=== PATIENT | female | born 1985 | race African-American/Black ===

== ENCOUNTER 2017-08-21 18:31 | Emergency (ER) | payer SELFPAY ==
[~2017-08-21] VITALS: Ht 149.9 cm; Wt 40.8 kg
[~2017-08-21 18:31] MED LIST: CLARITIN10 M2 ORAL; IBUPROFEN400 MG ORAL; NEXAFED30 MG ORAL
[2017-08-21] MEDS ORDERED: NKM (18:38)
[2017-08-21 18:44] VITALS: BP 117/70
[2017-08-21] MEDS: Cyclobenzaprine 10mg Tab ORAL ONE ×2 (19:04→19:09)
[2017-08-21] MEDS ORDERED: IBUPROFEN600 MG ORAL (19:17)
[2017-08-21] MEDS ORDERED: CYCLOBENZAPRINE10 MG ORAL (19:17)
[2017-08-21 19:25] VITALS: BP 114/74
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
== END 2017-08-21 19:27 | disposition home or self-care (01) ==
LOC: EMR 18:45
DX: S16.1XXA Strain of muscle, fascia and tendon at neck level, initial encounter (principal); J45.909 Unspecified asthma, uncomplicated; V49.9XXA Car occupant (driver) (passenger) injured in unspecified traffic accident, initial encounter; Y92.410 Unspecified street and highway as the place of occurrence of the external cause
CPT/HCPCS: 99283

== ENCOUNTER 2018-01-20 23:34 | Emergency (ER) | payer MEDICAID ==
[~2018-01-20] VITALS: Ht 149.9 cm; Wt 40.8 kg
[~2018-01-20 23:34] MED LIST changes: +CYCLOBENZAPRINE10 MG ORAL; +IBUPROFEN600 MG ORAL; +NKM
[2018-01-20 23:52] VITALS: BP 110/75
[2018-01-20] MEDS ORDERED: IBUPROFEN600 MG ORAL (23:53)
--- NOTE | 2018-01-20 23:54 | Emergency Room Report ---
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 She works in a [employer] district. For the last week she's been cutting cloth using her right hand. Now she presents with right hand pain with numbness and tingling to her fingers. Most her pain is to the wrist area. Worse with movement. No fever chills but no nausea no vomiting. Pain is 8 out of 10. Better with rest. Worse with movement. Allergies: Coded Allergies: No Known Allergies (Unverified , 10/20/14) Patient History Past Medical History: see triage record, old chart reviewed Past Surgical History: none Pertinent Family History: none Social History: Denies: smoking Last Menstrual Period: last month Now: No Immunizations: other Reviewed Nursing Documentation: PMH: Agreed; PSxH: Agreed Nursing Documentation-PMH Hx Asthma: Yes Review of Systems Eye: Denies: eye pain, blurred vision ENT: Denies: ear pain, nose congestion, throat swelling Respiratory: Denies: cough, shortness of breath Cardiovascular: Denies: chest pain, palpitations Gastrointestinal: Denies: abdominal pain, diarrhea, nausea, vomiting Musculoskeletal: Reports: joint pain; Denies: back pain Skin: Denies: rash Neurological: Denies: headache, numbness Endocrine: Denies: increased thirst, increased urine Hematologic/Lymphatic: Denies: easy bruising All Other Systems: negative except mentioned in HPI Physical Exam Vital Signs Date Time Temp Pulse Resp B/P (MAP) Pulse Ox O2 Delivery O2 Flow Rate FiO2 01/20/18 23:37 98.1 78 16 110/75 100 Room Air 98.1 vitals normal Sp02 EP Interpretation: reviewed, normal General Appearance: well appearing, no apparent distress, alert Head: normocephalic, atraumatic Eyes: bilateral eye PERRL, bilateral eye EOMI ENT: hearing grossly normal, normal pharynx Neck: full range of motion, supple, no meningismus Respiratory: chest non-tender, lungs clear, normal breath sounds Cardiovascular #1: regular rate, rhythm, no murmur Gastrointestinal: normal bowel sounds, non tender, no mass, no organomegaly, no bruit, non-distended Musculoskeletal: back normal, gait/station normal, normal range of motion, tender - over the right median nerve. No deformity. Pulse normal Psychiatric: mood/affect normal Skin: warm/dry Procedures Splinting Splinting : Consent: Verbal Location: right wrist Pre-Made Type: velcro Splint: volar Pre-Proc Neuro Vasc Exam: normal Post-Proc Neuro Vasc Exam: normal Patient Tolerated: Well Complications: None Medical Decision Making Diagnostic Impression: Primary Impression: Carpal tunnel syndrome of right wrist ER Course Patient with pain over the right wrist consistent with carpal tunnel syndrome. No evidence of septic joint. No trauma. We'll discharge home. Last Vital Signs Date Time Temp Pulse Resp B/P (MAP) Pulse Ox O2 Delivery O2 Flow Rate FiO2 01/20/18 23:37 98.1 78 16 110/75 100 Room Air 98.1 Status: unchanged Disposition: HOME, SELF-CARE Condition: Stable Scripts Ibuprofen* (MOTRIN*) 600 Mg Tablet 600 MG ORAL THREE TIMES A DAY, #30 TAB 0 Refills Prov: RAFFAELE GARCIA M.D. 01/20/18 Additional Instructions: Elevate wrist. Ice pack to the area. Decreased motion. Follow-up your doctor in 7 days. Return if worse. RAFFAELE GARCIA M.D. Jan 20, 2018 23:53
[2018-01-21 00:09] VITALS: BP 110/75
== END 2018-01-21 00:09 | disposition home or self-care (01) ==
LOC: EMR 23:54
DX: G56.01 Carpal tunnel syndrome, right upper limb (principal); J45.909 Unspecified asthma, uncomplicated
CPT/HCPCS: 99282

== ENCOUNTER 2018-01-21 23:43 | Emergency (ER) | payer MEDICAID ==
[~2018-01-21] VITALS: Ht 149.9 cm; Wt 40.8 kg
[2018-01-21 23:46] VITALS: BP 114/84
[2018-01-22 00:23] VITALS: BP 114/84
[2018-01-22 00:51] LABS: APPEARANCE,URINE CLEAR; BILIRUBIN, URINE NEGATIVE (NEGATIVE); COLOR,URINE PALE YELLOW; GLUCOSE, URINE (UA) NEGATIVE (NEGATIVE); KETONES,URINE NEGATIVE (NEGATIVE); LEUKOCYTE ESTERASE ,URINE NEGATIVE (NEGATIVE); NITRITE,URINE NEGATIVE (NEGATIVE); PH,URINE 6 (4.5-8.0); PROTEIN,URINE NEGATIVE (NEGATIVE); UROBILINOGEN,URINE NORMAL MG/DL (0.0-1.0)
--- NOTE | 2018-01-22 01:09 | Emergency Room Report ---
History of Present Illness General Chief Complaint: Pain Source: Patient Present Illness HPI Patient present with complaints of left wrist pain She was here recently with complaints of right wrist pain With repetitive motion and cutting Pain is worse with extension of the wrist Denies any other fall or trauma Patient also reported that she had some discomfort and a cramping sensation in the vaginal area about 20 minutes ago Which has resolved Patient has had that previously Denies any discharge denies any foul smell Allergies: Coded Allergies: No Known Allergies (Unverified , 10/20/14) Patient History Past Medical History: see triage record Pertinent Family History: none Last Menstrual Period: "a week and a half ago" Now: No Reviewed Nursing Documentation: PMH: Agreed; PSxH: Agreed Nursing Documentation-PMH Hx Asthma: Yes Review of Systems All Other Systems: negative except mentioned in HPI Physical Exam Vital Signs Date Time Temp Pulse Resp B/P (MAP) Pulse Ox O2 Delivery O2 Flow Rate FiO2 01/21/18 23:46 98.1 81 18 114/84 99 Room Air 98.1 Sp02 EP Interpretation: reviewed, normal General Appearance: well appearing, no apparent distress Head: normocephalic, atraumatic Eyes: bilateral eye PERRL, bilateral eye EOMI ENT: normal pharynx Neck: full range of motion, supple Respiratory: lungs clear Cardiovascular #1: regular rate, rhythm Gastrointestinal: non tender, soft, no mass Musculoskeletal: other - Patient has a splint in place on the right hand, the left wrist had some minimal discomfort on the ulnar aspect, no obvious swelling or edema Neurologic: alert, oriented x3, responsive Skin: normal color, no rash Lymphatic: no adenopathy Medical Decision Making Diagnostic Impression: Primary Impression: wrist pain ER Course Patient had the splint remained in the right hand At this time given the evaluation and did not feel patient required another splint on the left hand patient's vaginal exam is deferred to Gynecology clinic Does not sound to be uncomfortable at this time Patient's urine sample was clean and stable for close outpatient follow-up Labs Test 01/22/18 00:00 Urine Color Pale yellow Urine Appearance Clear Urine pH 6 (4.5-8.0) Urine Specific [place] 1.015 (1.005-1.035) Urine Protein Negative (NEGATIVE) Urine Glucose (UA) Negative (NEGATIVE) Urine Ketones Negative (NEGATIVE) Urine Occult Blood Negative (NEGATIVE) Urine Nitrite Negative (NEGATIVE) Urine Bilirubin Negative (NEGATIVE) Urine Urobilinogen Normal MG/DL (0.0-1.0) Urine Leukocyte Esterase Negative (NEGATIVE) Urine HCG, Qualitative Negative (NEGATIVE) Last Vital Signs Date Time Temp Pulse Resp B/P (MAP) Pulse Ox O2 Delivery O2 Flow Rate FiO2 01/22/18 00:23 98.1 18 114/84 99 Room Air 98.1 01/21/18 23:46 81 Status: unchanged Disposition: HOME, SELF-CARE Condition: Stable Referrals: [facility],REFERRING (PCP) Patient Instructions: Wrist Splint, [id number], Wrist Pain, [id number] Additional Instructions: Patient is provided with the discharge instructions notified to follow up with primary doctor in the next 2-3 days otherwise return to the er with any worsening symptoms. Please note that this report is being documented using [employer] technology. This can lead to erroneous entry secondary to incorrect interpretation by the dictating instrument. Marcial Butt DO Jan 22, 2018 01:09
== END 2018-01-22 01:05 | disposition home or self-care (01) ==
LOC: EMR 23:58
DX: M25.532 Pain in left wrist (principal); R10.2 Pelvic and perineal pain
CPT/HCPCS: 81003; 81025; 99282

== ENCOUNTER 2018-02-08 12:45 | Emergency (ER) | payer MEDICAID ==
[~2018-02-08] VITALS: Ht 149.9 cm; Wt 40.8 kg
[2018-02-08 13:06] VITALS: BP 103/75
[2018-02-08] MEDS ORDERED: OCUFLOX5 ML OP (13:08)
--- NOTE | 2018-02-08 13:09 | Emergency Room Report ---
History of Present Illness General Chief Complaint: Eye Problems Source: Patient Present Illness HPI 32 yo female patient presents ER complaining of eye irritation 1 day. Patient reports yellow crusting on right eye. Reports redness. Denies fever, patient. Reports vaccinations. Denies other acute symptoms. Denies contacts with similar symptoms. Reports does not wearing contact lenses. Denies pain with movement. Allergies: Coded Allergies: No Known Allergies (Unverified , 10/20/14) Patient History Past Medical History: see triage record Last Menstrual Period: January 11, 2018 Now: No Reviewed Nursing Documentation: PMH: Agreed; PSxH: Agreed Nursing Documentation-PMH Past Medical History: No History, Except For Hx Asthma: Yes Review of Systems All Other Systems: negative except mentioned in HPI Physical Exam Vital Signs Date Time Temp Pulse Resp B/P (MAP) Pulse Ox O2 Delivery O2 Flow Rate FiO2 02/08/18 12:51 98.0 86 18 103/75 100 Room Air 98.1 Sp02 EP Interpretation: reviewed, normal General Appearance: well appearing, no apparent distress, alert, GCS 15, non- toxic Head: normocephalic, atraumatic, other - no facial swelling Eyes: right eye Scleral Injection; bilateral eye normal inspection, bilateral eye PERRL, bilateral eye EOMI ENT: hearing grossly normal, normal pharynx, no angioedema, normal voice, TMs + canals normal, uvula midline, moist mucus membranes Neck: full range of motion Respiratory: lungs clear, normal breath sounds, no rhonchi, no respiratory distress, no accessory muscle use, no wheezing, speaking full sentences Cardiovascular #1: regular rate, rhythm, no edema Musculoskeletal: back normal, digits/nails normal, gait/station normal, normal range of motion, non-tender Neurologic: alert, oriented x3, responsive, motor strength/tone normal, sensory intact Psychiatric: mood/affect normal Skin: no rash Medical Decision Making PA Attestation Dr. Santos is my supervising Physician whom patient management has been discussed with. Diagnostic Impression: Primary Impression: Conjunctivitis ER Course Pt. presents to the ED c/o eye irritation right eye. Ddx considered but are not limited to allergic conjunctivitis, bacterial conjunctivitis, periorbital cellulitis, URI, sinusitis. Vital signs: are WNL, pt. is afebrile Patient has no signs of surrounding cellulitis, no pain with eye movement, does not require imaging at this time. ER COURSE: PE consistent with conjunctivitis right eye. We'll cover for possible bacterial cause. Compresses to eye. Follow up with ophthalmology an outside machinist apprentice. Do not touch eye. Wash hands thoroughly. DISCHARGE: Rx provided for Erythromycin ointment. Informed patient to apply to both eyes. At this time pt. is stable for d/c to home. Patient is resting comfortably, in no acute distress, nontoxic appearing, talking and smilng without difficulty. Will provide printed patient care instructions, and any necessary prescriptions. Patient instructed to follow up with management retail intern and discuss further follow up with ophthalmology and outside machinist apprentice. Care plan and follow up instructions have been discussed with the patient prior to discharge. Patient questions asked and answered. Patient reports undestanding and agreement to treatment plan. ER precautions given. Patient instructed to return to ER immediately for any new or worsening of symptoms including but not limited to vision loss, fever, changes in vision. - Please note that this Emergency Department Report was dictated using [employer] stick man technology software, occasionally this can lead to erroneous entry secondary to interpretation by the dictation equipment. Last Vital Signs Date Time Temp Pulse Resp B/P (MAP) Pulse Ox O2 Delivery O2 Flow Rate FiO2 02/08/18 12:51 98.0 86 18 103/75 100 Room Air 98.1 Disposition: HOME, SELF-CARE Condition: Stable Scripts Erythromycin Base (ERYTHROMYCIN*) 3.5 Gm Oint...g. 1 APPLIC RIGHT EYE TID for 7 Days, #3.5 GM 0 Refills Prov: Nigel Bran 02/08/18 Patient Instructions: Bacterial Conjunctivitis, [id number], Viral Conjunctivitis Additional Instructions: Followup with primary care provider in 3 -5 days. Followup with clerical support specialist in 2-3 days. Followup with outside machinist apprentice for eye examination. Take medications as directed. Do not apply directly to eye or will contaminate medication. Wash hands thoroughly. Avoid touching eye. Patient questions asked and answered. ER precautions given, patient instructed to return to ER immediately for any new or worsening of symptoms. Nigel Bran Feb 08, 2018 13:09
[2018-02-08] MEDS ORDERED: ERYTHROMYCIN3.5 GM RIGHT EYE (13:16)
[2018-02-08 13:28] VITALS: BP 103/75
== END 2018-02-08 13:31 | disposition home or self-care (01) ==
LOC: EMR 13:04
DX: H10.9 Unspecified conjunctivitis (principal); J45.909 Unspecified asthma, uncomplicated
CPT/HCPCS: 99283

== ENCOUNTER 2018-03-19 07:02 | Emergency (ER) | payer MEDICAID ==
[~2018-03-19] VITALS: Ht 149.9 cm; Wt 40.8 kg
[~2018-03-19 07:02] MED LIST changes: +ERYTHROMYCIN3.5 GM RIGHT EYE; +OCUFLOX5 ML OP
[2018-03-19] MEDS ORDERED: Albuterol/Ipratropium 3ml neb HHN ONE (08:15)
--- NOTE | 2018-03-19 08:22 | Diagnostic Imaging Report ---
INDICATION: Pain COMPARISON: Chest x-ray 10/20/14 FINDINGS: Single frontal view demonstrates a normal cardiomediastinal silhouette. The lungs are clear. No pleural effusions. The visualized osseous structures are within normal limits. IMPRESSION: No acute cardiopulmonary disease.
[2018-03-19] MEDS ORDERED: IBUPROFEN400 M1 PO (08:24)
[2018-03-19] MEDS ORDERED: ALBUTEROL SULF8.5 GM INH (08:24)
[2018-03-19 08:40] VITALS: BP 110/80
--- NOTE | 2018-03-21 14:49 | Cardiology Report ---
APPROVED REPORT EKG Measurement Heart [id number] Normal sinus rhythm Rightward axis Borderline ECG
--- NOTE | 2018-03-22 03:01 | Emergency Room Report ---
History of Present Illness General Chief Complaint: Pain Source: Patient Present Illness HPI Patient is a 32-year-old female who presented after increased chest discomfort. Patient had gradual onset of symptoms. She had prior history of asthma as a child. She denies any fever. She had nonproductive cough. She denies being smoker. She denies any significant cardiac history. Allergies: Coded Allergies: No Known Allergies (Unverified , 10/20/14) Patient History Past Medical History: see triage record Last Menstrual Period: last week Reviewed Nursing Documentation: PMH: Agreed; PSxH: Agreed Nursing Documentation-PMH Past Medical History: No History, Except For Hx Asthma: Yes Review of Systems All Other Systems: negative except mentioned in HPI Physical Exam Vital Signs Date Time Temp Pulse Resp B/P (MAP) Pulse Ox O2 Delivery O2 Flow Rate FiO2 03/19/18 07:09 98.2 80 18 108/76 98 98.2 03/19/18 08:08 Room Air General Appearance: well appearing, no apparent distress, alert, GCS 15 Head: normocephalic, atraumatic ENT: hearing grossly normal, normal voice Neck: full range of motion, supple Respiratory: lungs clear, normal breath sounds, no respiratory distress, speaking full sentences Cardiovascular #1: normal inspection Gastrointestinal: normal inspection, non tender, soft Musculoskeletal: normal inspection, back normal, digits/nails normal, no calf tenderness Neurologic: normal inspection, alert, oriented x3, responsive, porcelain enamel installer III-XII nml as tested, normal gait Psychiatric: mood/affect normal Skin: no rash Medical Decision Making Diagnostic Impression: Primary Impression: Nonspecific chest pain ER Course Patient presented for chest pain. Differential diagnosis included but was not limited to acute coronary syndrome, pulmonary embolism, pneumonia, aortic dissection, shingles, pneumothorax, aortic dissection, esophageal rupture, pericarditis. Because of complexity of patient's case imaging studies were ordered. EKG interpreted by me showed normal sinus rhythm without acute ST or T wave changes. Chest x-ray one view read by radiology showed normal cardiac size without evident infiltrate or effusion. The patient given a breathing treatment with improvement in her symptoms.The patient is advised to follow up with primary care doctor in 1-2 days. Patient is advised to return if any worsening condition or if any changes in status that are concerning. This report is dictated with [employer] Power system engineer software which may occasionally lead to discrepancies related to use of this software. Labs Test 03/19/18 07:10 Urine HCG, Qualitative Negative (NEGATIVE) Last Vital Signs Date Time Temp Pulse Resp B/P (MAP) Pulse Ox O2 Delivery O2 Flow Rate FiO2 03/19/18 08:40 98.0 89 18 110/80 100 Room Air 98.0 Status: improved Disposition: HOME, SELF-CARE Condition: Stable Scripts Albuterol Sulfate* (ALBUTEROL SULFATE MDI*) 8.5 Gm Hfa.aer.ad 2 PUFF INH Q4H PRN for cough/wheezing, #1 EA 0 Refills Prov: Neftaly Franco MD 03/19/18 Ibuprofen (Ibuprofen) 400 Mg Tablet 400 MG PO Q8HR, #30 TAB Prov: Neftaly Franco MD 03/19/18 Patient Instructions: Nonspecific Chest Pain, [id number]-vn-[place]rou Neftaly Franco MD Mar 22, 2018 03:00
== END 2018-03-19 08:40 | disposition home or self-care (01) ==
LOC: EMR 07:50
DX: R07.9 Chest pain, unspecified (principal)
CPT/HCPCS: 71045; 81025; 93005; 94640; 94664; 99283; J7620

== ENCOUNTER 2018-07-29 18:13 | Emergency (ER) | payer MEDICAID ==
[~2018-07-29] VITALS: Ht 149.9 cm; Wt 40.8 kg
[~2018-07-29 18:13] MED LIST changes: +ALBUTEROL SULF8.5 GM INH; +IBUPROFEN400 M1 PO
[2018-07-29] MEDS ORDERED: EPINEPHrine 1mg/1ml Amp IM ONE (18:45)
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
[2018-07-29 18:56] VITALS: BP 109/72
--- NOTE | 2018-07-29 18:56 | NUR ---
ED Nurse Note: pt walked into ED c/o swollen tongue, pt states she ate some chicken and felt throat closing up, denies n/v/d, denies hives. PT AA&ox4, gcs=15, skin warm and dry, resp even and unlabored, airway intact, pt can speak complete sentences wo difficulty, -n/v/d, ambulates w/ steady gait, will cont monitor, nsr on skills trainer, vss, O2sat = 100% on RA.
--- NOTE | 2018-07-29 18:56 | NUR ---
ED Nurse Note: last period was 2 wks ago, denies .
[2018-07-29 19:20] LABS: APPEARANCE,URINE CLEAR; BILIRUBIN, URINE NEGATIVE (NEGATIVE); COLOR,URINE PALE YELLOW; GLUCOSE, URINE (UA) NEGATIVE (NEGATIVE); KETONES,URINE NEGATIVE (NEGATIVE); LEUKOCYTE ESTERASE ,URINE NEGATIVE (NEGATIVE); NITRITE,URINE NEGATIVE (NEGATIVE); PH,URINE 6 (4.5-8.0); PROTEIN,URINE NEGATIVE (NEGATIVE); UROBILINOGEN,URINE NORMAL MG/DL (0.0-1.0)
[2018-07-29] MEDS ORDERED: BENADRYL25 MG ORAL (20:23)
[2018-07-29] MEDS ORDERED: PREDNISONE20 MG ORAL (20:23)
[2018-07-29 20:30] VITALS: BP_SYST 106; BP_SYST 109; BP_DIAS 68; BP_DIAS 72
--- NOTE | 2018-07-29 20:32 | NUR ---
ED Nurse Note: pt was cleared for discharge by kayla, tee instruction and prescription explained and pt able to verbalize understanding. id band removed. vss, aox4. pt walked with steady gait. pt walk out of the with all belongings.
== END 2018-07-29 20:32 | disposition home or self-care (01) ==
LOC: EMR 19:38
DX: T78.3XXA Angioneurotic edema, initial encounter (principal); J45.909 Unspecified asthma, uncomplicated
CPT/HCPCS: 81003; 81025; 96372; 99283; J0171; J7512

== ENCOUNTER 2018-09-07 12:47 | Emergency (ER) | payer MEDICAID ==
[~2018-09-07] VITALS: Ht 149.9 cm; Wt 40.8 kg
[~2018-09-07 12:47] MED LIST changes: +BENADRYL25 MG ORAL; +PREDNISONE20 MG ORAL
[2018-09-07] MEDS ORDERED: NKM (13:07)
[2018-09-07 13:10] VITALS: BP 128/67
--- NOTE | 2018-09-07 13:15 | NUR ---
ED Nurse Note: pt walked in c/o swollen tongue x 30min prior to walk in, ate peanut butter and apple today, pt denies other sx. pt AA&ox4, gcs=15, skin warm and dry, resp even and unlabored on RA, able to speak complete sentences w/o difficulty, -n/v/d, no hives or rash noted. will cont monitor.
[2018-09-07] MEDS ORDERED: EPINEPHrine 1mg/1ml Amp IM ONE (13:30)
[2018-09-07] MEDS: Dexamethasone 4mg/ml vial IM ONE ×2 (13:39→13:43)
--- NOTE | 2018-09-07 13:39 | NUR ---
ED Nurse Note: pt refused decadron, ER provider notified.
--- NOTE | 2018-09-07 14:19 | NUR ---
ED Nurse Note: pt reports tongue swelling is better, resp even and unlabored on RA, no sx resp distress will cont monitor.
--- NOTE | 2018-09-07 14:37 | Emergency Room Report ---
History of Present Illness General Chief Complaint: Allergic Reaction Source: Patient Present Illness HPI 33-year-old female presents to the emergency department complaining of swelling of her tongue primarily on the left side 45 minutes. Patient reports history of angioedema in the past which responded well to epinephrine given in the ER. Patient states that she had some peanut butter prior to onset of her symptoms and that this may have been a chair. Patient states that she never followed up and had allergy testing. She denies wheezing, swelling of the throat, difficulty breathing or swallowing or rashes. Denies sore throat, fevers or chills. She denies pain. Allergies: Coded Allergies: No Known Allergies (Unverified , 10/20/14) Patient History Past Medical History: see triage record Past Surgical History: none Pertinent Family History: none Now: No Immunizations: UTD Reviewed Nursing Documentation: PMH: Agreed; PSxH: Agreed Nursing Documentation-PMH Past Medical History: No History, Except For Hx Asthma: Yes Review of Systems All Other Systems: negative except mentioned in HPI Physical Exam Vital Signs Date Time Temp Pulse Resp B/P (MAP) Pulse Ox O2 Delivery O2 Flow Rate FiO2 09/07/18 13:04 98.4 90 19 111/78 99 Room Air Sp02 EP Interpretation: reviewed, normal General Appearance: no apparent distress, alert, GCS 15, non-toxic Head: normocephalic, atraumatic Eyes: bilateral eye normal inspection, bilateral eye PERRL ENT: hearing grossly normal, normal voice, other - Mild Swelling of the tongue left>right side. no stridor, normal posterior pharynx. able to tolerate secretions. Neck: full range of motion Respiratory: chest non-tender, lungs clear, normal breath sounds, no respiratory distress, no accessory muscle use, no wheezing, speaking full sentences Cardiovascular #1: regular rate, rhythm Musculoskeletal: back normal, gait/station normal, normal range of motion, non- tender Neurologic: alert, oriented x3, responsive, motor strength/tone normal, sensory intact, speech normal, grossly normal Psychiatric: judgement/insight normal Skin: normal color, no rash, warm/dry, well hydrated Lymphatic: no adenopathy Medical Decision Making PA Attestation Dr. Franco is my supervising Physician whom patient management has been discussed with. Diagnostic Impression: Primary Impression: Angio-edema Qualified Codes: T78.3XXA - Angioneurotic edema, initial encounter ER Course 33-year-old female presents to the emergency department complaining of swelling of her tongue primarily on the left side 45 minutes. Patient reports history of angioedema in the past which responded well to epinephrine given in the ER. Patient states that she had some peanut butter prior to onset of her symptoms and that this may have been a chair. Patient states that she never followed up and had allergy testing. She denies wheezing, swelling of the throat, difficulty breathing or swallowing or rashes. Denies sore throat, fevers or chills. She denies pain. Ddx considered but are not limited to cellulitis, allergic reaction, angio edema , abscess Vital signs: are WNL, pt. is afebrile H&PE are most consistent with acute angio-edema possibly allergy induced.-- oxygenating well, no signs of anaphylaxis, no stridor, no obvious airway compromise. ORDERS: none required at this time, the diagnosis is clinical ED INTERVENTIONS: IM Epi, Pt. declined Steroids. d/w pt. conservative treatment, and to follow up with a primary care provider. pt given a list of primary care clinics for follow up. d/w pt. to return to the ED with worsening or new symptoms. d/c with rx for EpiPens. DISCHARGE: At this time pt. is stable for d/c to home. Will provide printed patient care instructions, and any necessary prescriptions. Care plan and follow up instructions have been discussed with the patient prior to discharge. Last Vital Signs Date Time Temp Pulse Resp B/P (MAP) Pulse Ox O2 Delivery O2 Flow Rate FiO2 09/07/18 13:10 90 16 128/67 98 Room Air 09/07/18 13:04 98.4 Disposition: HOME, SELF-CARE Condition: Stable Scripts Epinephrine (Epipen 2-Matt) 0.3 Mg/0.3 Ml Auto.injct 0.3 MG IM PRN, #1 EA Prov: Vivien Thomas 09/07/18 Prednisone* (PREDNISONE*) 20 Mg Tablet 20 MG ORAL DAILY for 5 Days, #5 TAB 0 Refills Prov: Vivien Thomas 09/07/18 Patient Instructions: Angioedema, [id number] Additional Instructions: Take medications as directed. Follow up with a Primary Care Provider within 4 days, even if your symptoms have resolved. ALLERGY TESTING IS REQUIRED --Please review list of primary care clinics, if you do not already have a primary care provider Return sooner to ED if new symptoms occur, or current symptoms become worse. - Please note that this Emergency Department Report was dictated using [employer]uri[employer] equipment operator technology software, occasionally this can lead to erroneous entry secondary to interpretation by the dictation equipment. Vivien Thomas Sep 07, 2018 14:37
[2018-09-07] MEDS ORDERED: EPIPEN 2-P0.3 MG/0.3 IM (14:38)
[2018-09-07] MEDS ORDERED: PREDNISONE20 MG ORAL (14:38)
[2018-09-07 14:52] VITALS: BP 126/66
--- NOTE | 2018-09-07 14:53 | NUR ---
ED Nurse Note: pt cleared to be d/c per ER provider, pt discharge/aftercare instruction provided w/ prescription, pt education done via discussion and handout, pt advised to follow up with pcp or return to ed if sx worsen or new sx develop, pt verbalized understanding and agrees with plan. vss, resp even and unlabored on RA, -n/v/d, ambulates w/ steady gait, all belongings left w./ pt.
== END 2018-09-07 14:53 | disposition home or self-care (01) ==
LOC: EMR 13:19
DX: T78.3XXA Angioneurotic edema, initial encounter (principal); J45.909 Unspecified asthma, uncomplicated
CPT/HCPCS: 96372; 99283; J0171; J1100

== ENCOUNTER 2018-09-27 15:22 | Emergency (ER) | payer SELFPAY ==
[~2018-09-27] VITALS: Ht 149.9 cm; Wt 40.8 kg
[~2018-09-27 15:22] MED LIST changes: +EPIPEN 2-P0.3 MG/0.3 IM
--- NOTE | 2018-09-27 15:35 | NUR ---
ED Nurse Note: PT WALKED IN TO ER TODAY FROM HOME. AOX4. PT C/O ITCHING AND YELLOW DISCHARGE OF RIGHT EYE X 1-2 DAYS AGO. PT STATES SHE WOKE UP THIS AM WITH CRUSTY EYELID. PT DENIES ANY PAIN OR CHANGES IN VISION. PT PRESENTS WITH REDNESS BUT NO ACTIVE DRAINAGE AT THIS TIME. VA OU: 20/20
[2018-09-27 15:37] VITALS: BP 116/74
--- NOTE | 2018-09-27 16:25 | Emergency Room Report ---
History of Present Illness General Chief Complaint: Eye Problems Source: Patient Present Illness HPI 33-year-old female presents to the emergency department complaining of eye discharge in the right eye with swelling and erythema 2-3 days. Patient reports significant amount of discharge in the mornings. Denies eye pain. Patient denies foreign body or scratching sensation she denies photophobia or pain with eye movements. Patient reports some increase in her lacrimation she denies appreciable trauma to the eye she denies contact lens use. she also c/o ear wax sensation which she rates as 8/10 in severity discomfort in the ears bilaterally. Denies ear d/c, ear tenderness or loss of hearing. pt. states hearing is mildly muffled. denies ear pain. Allergies: Coded Allergies: No Known Allergies (Unverified , 10/20/14) Patient History Past Medical History: see triage record Past Surgical History: none Pertinent Family History: none Last Menstrual Period: 3 weeks Now: No Reviewed Nursing Documentation: PMH: Agreed; PSxH: Agreed Nursing Documentation-PMH Past Medical History: No History, Except For Hx Asthma: Yes Review of Systems All Other Systems: negative except mentioned in HPI Physical Exam Vital Signs Date Time Temp Pulse Resp B/P (MAP) Pulse Ox O2 Delivery O2 Flow Rate FiO2 09/27/18 15:25 98.2 100 20 112/70 98 Room Air Sp02 EP Interpretation: reviewed, normal General Appearance: no apparent distress, alert, GCS 15, non-toxic Head: normocephalic, atraumatic Eyes: bilateral eye normal inspection, bilateral eye PERRL, bilateral eye other - right eye with purulent d/c, and conjunctival erythema and swelling, no photophobia or pain with eye movements, no evidence of eye fb. ENT: hearing grossly normal, normal voice, nasal congestion, other - Excessive cerumen primarily in the left ear, no evidence ot TM rupture or infection. Neck: full range of motion Respiratory: lungs clear, normal breath sounds, speaking full sentences Cardiovascular #1: regular rate, rhythm Musculoskeletal: back normal, gait/station normal, normal range of motion, non- tender Neurologic: alert, oriented x3, responsive, motor strength/tone normal, sensory intact, normal gait, speech normal, grossly normal Psychiatric: judgement/insight normal Skin: normal color, no rash, warm/dry, well hydrated Lymphatic: no adenopathy Medical Decision Making PA Attestation Dr. Santos is my supervising Physician whom patient management has been discussed with. Diagnostic Impression: Primary Impression: Bacterial conjunctivitis of right eye Additional Impressions: Excessive cerumen in left ear canal Nasal congestion ER Course 33-year-old female presents to the emergency department complaining of eye discharge in the right eye with swelling and erythema 2-3 days. Patient reports significant amount of discharge in the mornings. Denies eye pain. Patient denies foreign body or scratching sensation she denies photophobia or pain with eye movements. Patient reports some increase in her lacrimation she denies appreciable trauma to the eye she denies contact lens use. she also c/o ear wax sensation which she rates as 8/10 in severity discomfort in the ears bilaterally. Denies ear d/c, ear tenderness or loss of hearing. pt. states hearing is mildly muffled. denies ear pain. Ddx considered but are not limited to: corneal abrasion, acute glaucoma, globe rupture, FB, Corneal Ulcer, conjunctivitis. Iridis, orbital cellulitis,keratitis , sinusitis Vital signs: are WNL, pt. is afebrile H&PE are most consistent with: bacterial conjunctivitis, and excessive cerumen ORDERS: none at this time. ED INTERVENTIONS: none at this time. DISCHARGE: At this time pt. is stable for d/c to home. Will provide printed patient care instructions, and any necessary prescriptions. Care plan and follow up instructions have been discussed with the patient prior to discharge. Last Vital Signs Date Time Temp Pulse Resp B/P (MAP) Pulse Ox O2 Delivery O2 Flow Rate FiO2 09/27/18 15:37 98.4 92 18 116/74 99 Room Air Disposition: HOME, SELF-CARE Condition: Stable Scripts Cetirizine Hcl/Pseudoephedrine (ZYRTEC-D TABLET) 1 Each Tab.er.12h 1 EACH ORAL Q12HR, #20 TAB Prov: Vivien Thomas 09/27/18 Carbamide Peroxide (DEBROX) 15 Ml Drops 10 DROP LEFT EAR TWICE A DAY for 4 Days, #15 ML 0 Refills Prov: Vivien Thomas 09/27/18 Ofloxacin (OCUFLOX) 5 Ml Drops 1 ML OP TID for 5 Days, #5 ML Prov: Vivien Thomas 09/27/18 Referrals: NOT CHOSEN IPA/,REFERRING (PCP) Patient Instructions: Bacterial Conjunctivitis, [id number] Additional Instructions: Take medications as directed. Follow up with a Primary Care Provider in 3-5 days, even if your symptoms have resolved. --Please review list of primary care clinics, if you do not already have a primary care provider Return sooner to ED if new symptoms occur, or current symptoms become worse. - Please note that this Emergency Department Report was dictated using [employer] engineer technology software, occasionally this can lead to erroneous entry secondary to interpretation by the dictation equipment. Vivien Thomas Sep 27, 2018 16:25
[2018-09-27] MEDS ORDERED: DEBROX15 M1 LEFT EAR (16:26)
[2018-09-27] MEDS ORDERED: OCUFLOX5 ML OP (16:26)
[2018-09-27] MEDS ORDERED: ZYRTEC-D TABLE1 EACH ORAL (16:26)
[2018-09-27 16:34] VITALS: BP 112/72
--- NOTE | 2018-09-27 16:35 | NUR ---
ED Nurse Note: PT SITTING PEACEFULLY IN BED IN NAD. AOX4. PRESCRIPTIONS AND DISCHARGE PAPERWORK EXPLAINED TO PT. PT VERBALIZES UNDERSTANDING AND ALL QUESTIONS ANSWERED. PRESCRIPTIONS AND DISCHARGE PAPERWORK GIVEN TO PT AND ID WRISTBAND REMOVED. PT WALKED OUT OF ER WITH STEADY GAIT AND ALL BELONGINGS.
== END 2018-09-27 16:36 | disposition home or self-care (01) ==
LOC: EMR 15:50
DX: H10.89 Other conjunctivitis (principal); B96.89 Other specified bacterial agents as the cause of diseases classified elsewhere; H61.22 Impacted cerumen, left ear; R09.81 Nasal congestion; J45.909 Unspecified asthma, uncomplicated
CPT/HCPCS: 99282

== ENCOUNTER 2019-01-13 03:40 | Emergency (ER) | payer SELFPAY ==
[~2019-01-13] VITALS: Ht 149.9 cm; Wt 40.8 kg
[~2019-01-13 03:40] MED LIST changes: +DEBROX15 M1 LEFT EAR; +ZYRTEC-D TABLE1 EACH ORAL
--- NOTE | 2019-01-13 03:50 | NUR ---
ED Nurse Note: patient ambulated to ed c/o allergic reaction x 0300. pt presents with swollen tongue and difficulty breathing. spo2 at triage 99%. reports eating walnuts prior to symptoms. Pt is AO x 4times, VSS, on room air no distress. ERMD seen Pt at bedside.
[2019-01-13] MEDS ORDERED: DiphenhydrAMINE 50mg/ml Inj IM ONE (04:00)
[2019-01-13] MEDS ORDERED: EPINEPHrine 1mg/1ml Amp IM ONE (04:00)
[2019-01-13] MEDS ORDERED: DiphenhydrAMINE 50mg/ml Inj IVP ONE (04:00)
[2019-01-13] MEDS ORDERED: Solu-MEDROL 125mg Inj IVP ONE (04:00)
--- NOTE | 2019-01-13 04:06 | Emergency Room Report ---
History of Present Illness General Chief Complaint: Allergic Reaction Source: Patient Present Illness HPI This is a 33-year-old female with a known history of angioedema with allergy to peanuts. She has an epinephrine pen at home already. She presents with allergic reaction with tongue swelling about 2 hours ago. She did eat walnuts tonight. She never had any skin testing or blood testing for allergy. She did not use her epinephrine pen because she did not know how to use it. She denies any tongue swelling. [place] itching in her neck. Denies any wheezing or respiratory distress. No nausea no vomiting. Similar symptoms in the past. Did not take any Benadryl. Allergies: Coded Allergies: No Known Allergies (Unverified , 10/20/14) Patient History Past Medical History: see triage record, old chart reviewed Past Surgical History: none Pertinent Family History: none Social History: Denies: smoking Last Menstrual Period: 01/08/19 Now: No Immunizations: other Reviewed Nursing Documentation: PMH: Agreed; PSxH: Agreed Nursing Documentation-PMH Past Medical History: No Stated History Hx Asthma: Yes Review of Systems Eye: Denies: eye pain, blurred vision ENT: Denies: ear pain, nose congestion, throat swelling Respiratory: Denies: cough, shortness of breath Cardiovascular: Denies: chest pain, palpitations Gastrointestinal: Denies: abdominal pain, diarrhea, nausea, vomiting Musculoskeletal: Denies: back pain, joint pain Skin: Denies: rash Neurological: Denies: headache, numbness Endocrine: Denies: increased thirst, increased urine Hematologic/Lymphatic: Denies: easy bruising All Other Systems: negative except mentioned in HPI Physical Exam Vital Signs Date Time Temp Pulse Resp B/P (MAP) Pulse Ox O2 Delivery O2 Flow Rate FiO2 01/13/19 03:42 98.4 95 14 110/72 (85) 99 Room Air Vitals normal Sp02 EP Interpretation: reviewed, normal General Appearance: well appearing, no apparent distress, alert Head: normocephalic, atraumatic Eyes: bilateral eye PERRL, bilateral eye EOMI ENT: hearing grossly normal, normal pharynx, other - She has edema to the left side of her tongue. Neck: full range of motion, supple, no meningismus Respiratory: chest non-tender, lungs clear, normal breath sounds Cardiovascular #1: regular rate, rhythm, no murmur Gastrointestinal: normal bowel sounds, non tender, no mass, no organomegaly, no bruit, non-distended Musculoskeletal: back normal, gait/station normal, normal range of motion Psychiatric: mood/affect normal Medical Decision Making Diagnostic Impression: Primary Impression: Allergic reaction Qualified Codes: T78.40XA - Allergy, unspecified, initial encounter Additional Impression: Angioedema Qualified Codes: T78.3XXA - Angioneurotic edema, initial encounter ER Course Patient presents with angioedema secondary allergic reaction to most likely walnut. I showed her how to use the epinephrine pen. Also advised patient to get blood testing to see what other nights she is allergic to. Also told her to carry Benadryl with her in case of allergic reaction like this. No evidence of respiratory distress. No evidence of neck edema. Patient better after Benadryl and epinephrine. Patient did not want IV medication. She rather have IM. Last Vital Signs Date Time Temp Pulse Resp B/P (MAP) Pulse Ox O2 Delivery O2 Flow Rate FiO2 01/13/19 03:42 98.4 95 14 110/72 (85) 99 Room Air Status: improved Disposition: HOME, SELF-CARE Condition: Stable Scripts Prednisone* (PREDNISONE*) 20 Mg Tablet 40 MG ORAL DAILY, #6 TAB Prov: Víctor Baker MD 01/13/19 Diphenhydramine Hcl* (BENADRYL*) 25 Mg Capsule 50 MG ORAL Q6H PRN for Itching, #30 CAP Prov: Víctor Baker MD 01/13/19 Referrals: NOT CHOSEN IPA/,REFERRING (PCP) Patient Instructions: Food Allergy Additional Instructions: Follow-up with your doctor in a week. Recommend food allergy testing to see what other not see you are allergic to. Carry Benadryl and epinephrine pen with you. Return if symptoms worsen. Víctor Baker MD Jan 13, 2019 04:06
[2019-01-13 04:07] VITALS: BP 122/72
[2019-01-13] MEDS ORDERED: BENADRYL25 MG ORAL (04:09)
[2019-01-13] MEDS ORDERED: PREDNISONE20 MG ORAL (04:09)
[2019-01-13 05:50] VITALS: BP 132/77
--- NOTE | 2019-01-13 05:51 | NUR ---
ED Nurse Note: Assist Pt to restroom, Pt VSS.
[2019-01-13 06:35] VITALS: BP 132/77
--- NOTE | 2019-01-13 06:37 | NUR ---
ER DISCHARGE NOTE: Patient is cleared to be discharged per ERMD, pt is aox4, on room air, with stable vital signs. pt was given dc and prescription instructions, pt was able to verbalize understanding, pt id band removed without complications. pt is able to ambulate with steady gait. pt took all belongings.
== END 2019-01-13 06:58 | disposition home or self-care (01) ==
LOC: EMR 03:54
DX: T78.40XA Allergy, unspecified, initial encounter (principal); T78.3XXA Angioneurotic edema, initial encounter; X58.XXXA Exposure to other specified factors, initial encounter; Y92.9 Unspecified place or not applicable
CPT/HCPCS: 96372; 96374; 96375; 99284; J0171; J1200; J7512

== ENCOUNTER 2019-02-25 17:53 | Emergency (ER) | payer SELFPAY ==
[~2019-02-25] VITALS: Ht 149.9 cm; Wt 40.8 kg
[2019-02-25] MEDS ORDERED: NKM (17:59)
[2019-02-25 18:05] VITALS: BP 109/73
--- NOTE | 2019-02-25 18:05 | NUR ---
ED Nurse Note: pt walked in due to insect bite on the left leg, pt not in distress.. pt stated that it happend last night. pt is seen by [facility]. will continue to monitor.
[2019-02-25] MEDS ORDERED: KENALOG 0.025%15 GM TOPIC (18:23)
[2019-02-25 18:25] VITALS: BP 109/73
--- NOTE | 2019-02-25 21:12 | Emergency Room Report ---
History of Present Illness General Chief Complaint: Skin Rash/Abscess Source: Patient Present Illness HPI 33-year-old female with no significant past medical history complaining of left lower leg insect bite while walking home last night. Denies fever, SOB, throat tightness, weakness, numbness. Normal gait. Allergies: Coded Allergies: [place] (Verified Allergy, Unknown, 01/13/19) Patient History Past Medical History: none Past Surgical History: none Social History: Denies: smoking, alcohol use, drug use Last Menstrual Period: 02/17/19 Now: No : 0 Para: 0 Nursing Documentation-H Past Medical History: No History, Except For Hx Cardiac Problems: No - Anemic Hx Asthma: Yes Review of Systems All Other Systems: negative except mentioned in HPI Physical Exam Vital Signs Date Time Temp Pulse Resp B/P (MAP) Pulse Ox O2 Delivery O2 Flow Rate FiO2 02/25/19 17:57 99.1 93 18 109/73 (85) 98 Room Air Sp02 EP Interpretation: reviewed, normal General Appearance: no apparent distress, alert, GCS 15, non-toxic Respiratory: chest non-tender, lungs clear, normal breath sounds, speaking full sentences Cardiovascular #1: regular rate, rhythm, no edema Musculoskeletal: normal inspection, non-tender, no calf tenderness Skin: other - left anterior meng: 2.5cm x 2cm area of erythema and induration. no drainage. Medical Decision Making PA Attestation This patient was seen under the direct supervision of Dr. Berg, who directed all aspects of care and diagnostic interpretation. Diagnostic Impression: Primary Impression: Insect bite of left leg ER Course ED course HPI: 33-year-old female with no significant past medical history complaining of left lower leg insect bite while walking home last night. Very itchy, no pain.. Denies fever, SOB, throat tightness, weakness, numbness. Normal gait. No evidence of cellulitis, no antibiotics are indicated. Ddx: Insect bite versus Cellulits versus dermatitis HPI & PE consistent with: Insect bite, left lower leg Orders/ Interventions: None Disposition: Patient stable for discharge home. Prescription for triamcinolone cream given. Avoid scratching area. Apply ice pack to affected area. Followup with PCP in 2 days or return to ER if worsening symptoms, new symptoms or sudden change in condition. Please note that this Emergency Department Report was dictated using [employer]vironments[employer] court team member technology software, occasionally this can lead to erroneous entry secondary to interpretation by the dictation equipment. Last Vital Signs Date Time Temp Pulse Resp B/P (MAP) Pulse Ox O2 Delivery O2 Flow Rate FiO2 02/25/19 18:25 99.1 68 18 109/73 98 Room Air Disposition: HOME, SELF-CARE Condition: Stable Scripts Triamcinolone Acet (Triamcinolone Acetonide) 15 Gm Cream..g. 1 APPLIC TOPIC BID for itch, #30 GM Prov: Alicia Butts 02/25/19 Referrals: NOT CHOSEN IPA/,REFERRING (PCP) [facility] Patient Instructions: Insect Bite, [id number] Additional Instructions: Avoid scratching area. Use topical medication as prescribed. Followup with PCP in 2 days return to ED if worsening symptoms, new symptoms, or sudden change in condition. Alicia Butts Feb 25, 2019 21:12
== END 2019-02-25 18:40 | disposition home or self-care (01) ==
LOC: EMR 18:37
DX: S80.862A Insect bite (nonvenomous), left lower leg, initial encounter (principal); W57.XXXA Bitten or stung by nonvenomous insect and other nonvenomous arthropods, initial encounter; Y92.9 Unspecified place or not applicable
CPT/HCPCS: 99282

== ENCOUNTER 2019-03-30 22:14 | Emergency (ER) | payer SELFPAY ==
[~2019-03-30] VITALS: Ht 149.9 cm; Wt 40.8 kg
[~2019-03-30 22:14] MED LIST changes: +KENALOG 0.025%15 GM TOPIC
--- NOTE | 2019-03-30 22:21 | NUR ---
ED Nurse Note: Walk-in patient with complaints of peanut allergic response and reports "swelling of the left side of her tongue". Patient vital signs are stable, patient is O2 saturation is at 100% on RA. Will continue to monitor.
[2019-03-30 22:24] VITALS: BP 115/76
[2019-03-30] MEDS ORDERED: Solu-MEDROL 125mg Inj IVP ONE (22:45)
[2019-03-30] MEDS ORDERED: DiphenhydrAMINE 50mg/ml Inj IVP ONE (22:45)
--- NOTE | 2019-03-30 22:49 | Emergency Room Report ---
History of Present Illness General Chief Complaint: Allergic Reaction Source: Patient Present Illness HPI Is a 33-year-old female with a history of allergies to peanuts and walnuts. She never had any testing done but states she had a reaction to these 2 nights before. She presents with chief complaint of allergic reaction. She had some peanut butter around 6:00 today. Few hours later her left side of her tongue swell up. She did not take any medication. She had similar reaction in the past but still try a different type of peanut butter. Still has the same reaction. No tongue swelling. No shortness of breath. Allergies: Coded Allergies: [place] (Verified Allergy, Unknown, 01/13/19) Patient History Past Medical History: see triage record, old chart reviewed Past Surgical History: none Pertinent Family History: none Social History: Denies: smoking Last Menstrual Period: n/a Now: No Immunizations: other Reviewed Nursing Documentation: PMH: Agreed; PSxH: Agreed Nursing Documentation-PMH Past Medical History: No History, Except For Hx Cardiac Problems: No - Anemic Hx Asthma: Yes Review of Systems Eye: Denies: eye pain, blurred vision ENT: Denies: ear pain, nose congestion, throat swelling Respiratory: Denies: cough, shortness of breath Cardiovascular: Denies: chest pain, palpitations Gastrointestinal: Denies: abdominal pain, diarrhea, nausea, vomiting Musculoskeletal: Denies: back pain, joint pain Skin: Denies: rash Neurological: Denies: headache, numbness Endocrine: Denies: increased thirst, increased urine Hematologic/Lymphatic: Denies: easy bruising All Other Systems: negative except mentioned in HPI Physical Exam Vital Signs Date Time Temp Pulse Resp B/P (MAP) Pulse Ox O2 Delivery O2 Flow Rate FiO2 03/30/19 22:15 98.4 80 18 115/76 (89) 100 Room Air Vitals normal Sp02 EP Interpretation: reviewed, normal General Appearance: well appearing, no apparent distress, alert Head: normocephalic, atraumatic Eyes: bilateral eye PERRL, bilateral eye EOMI ENT: hearing grossly normal, normal pharynx, other - Tongue with mild edema to the left side. Neck: full range of motion, supple, no meningismus Respiratory: chest non-tender, lungs clear, normal breath sounds Cardiovascular #1: regular rate, rhythm, no murmur Gastrointestinal: normal bowel sounds, non tender, no mass, no organomegaly, no bruit, non-distended Musculoskeletal: back normal, gait/station normal, normal range of motion Psychiatric: mood/affect normal Medical Decision Making Diagnostic Impression: Primary Impression: Allergic reaction Qualified Codes: T78.40XA - Allergy, unspecified, initial encounter ER Course Pt presents with allergic reaction to peanuts. Explained to patient that she cannot have any type of peanuts. She had to use her EpiPen 2 months ago for walnuts allergy reaction. Advised patient for outpatient testing to see if she is allergic to any other knots. Refuse IV and wants IM shots. Last Vital Signs Date Time Temp Pulse Resp B/P (MAP) Pulse Ox O2 Delivery O2 Flow Rate FiO2 03/30/19 22:24 80 18 Room Air 03/30/19 22:24 98.4 115/76 100 Status: improved Disposition: HOME, SELF-CARE Condition: Stable Scripts Diphenhydramine Hcl* (BENADRYL*) 25 Mg Capsule 25 MG ORAL Q6H PRN for Itching, #30 CAP Prov: Víctor Baker MD 03/30/19 Prednisone* (PREDNISONE*) 20 Mg Tablet 40 MG ORAL DAILY, #6 TAB Prov: Víctor Baker MD 03/30/19 Epinephrine (Epipen 2-Matt) 0.3 Mg/0.3 Ml Auto.injct 0.3 MG IM ONCE, #1 EA Prov: Víctor Baker MD 03/30/19 Patient Instructions: Food Allergy Additional Instructions: Follow-up with your doctor in 7 days. Recommend outpatient allergy testing. Do not eat any peanuts or walnuts. Return if symptoms worsen. Víctor Baker MD Mar 30, 2019 22:49
[2019-03-30] MEDS ORDERED: BENADRYL25 MG ORAL (22:52)
[2019-03-30] MEDS ORDERED: PREDNISONE20 MG ORAL (22:52)
[2019-03-30] MEDS ORDERED: EPIPEN 2-P0.3 MG/0.3 IM (22:52)
[2019-03-30] MEDS ORDERED: DiphenhydrAMINE 50mg/ml Inj IM ONE (23:00)
[2019-03-30 23:32] VITALS: BP 115/76
--- NOTE | 2019-03-30 23:32 | NUR ---
ED Nurse Note: Patient exhibits no s/s of continued allergic reaction. Patient tongue appears to be normal size. Patient is ambulatory with steady gait and A&Ox4. Patient verbalized understanding of discharge instructions and departed with all belongings.
== END 2019-03-30 23:32 | disposition home or self-care (01) ==
LOC: EMR 22:28
DX: T78.1XXA Other adverse food reactions, not elsewhere classified, initial encounter (principal); Z91.010 Allergy to peanuts; J45.909 Unspecified asthma, uncomplicated; Z91.018 Allergy to other foods; X58.XXXA Exposure to other specified factors, initial encounter
CPT/HCPCS: 96372; 96374; 96375; 99284; J1200; J7512